=== PATIENT | male | born 1970 | race Caucasian/White ===

== ENCOUNTER 2018-02-27 11:48 | Emergency (ER) | payer MEDICAID, OTHER ==
[2018-02-27 13:13] LABS: ADD MAN DIFF? NO
[2018-02-27 13:17] LABS: BASOPHILS % 0.3 % (0.0-2.0); EOSINOPHILS # 0.1 10^3/ul (0.0-0.5); EOSINOPHILS % 0.6 % (0.0-7.0); HEMATOCRIT 44.5 % (42.0-52.0); HEMOGLOBIN 15.2 g/dl (14.0-18.0); LYMPHOCYTES # 3.7 10^3/ul (0.8-2.9); LYMPHOCYTES % 31.1 % (15.0-51.0); MEAN CORPUSCULAR HGB CONC 34.2 g/dl (32.0-37.0); MEAN CORPUSCULAR VOLUME 90.6 fl (82.0-101.0); MEAN PLATELET VOLUME 10.1 fl (7.4-10.4); MONOCYTE # 0.7 10^3/ul (0.3-0.9); MONOCYTES % 5.9 % (0.0-11.0); NEUTROPHIL # 7.3 10^3/ul (1.6-7.5); NEUTROPHILS % 61.7 % (39.0-77.0); PLATELET COUNT 275 10^3/UL (140-415); RED BLOOD COUNT 4.91 10^6/ul (4.70-6.10); RED CELL DISTRIBUTION WIDTH 12.5 % (11.5-14.5)
[2018-02-27 13:17] LABS: WHITE BLOOD COUNT 11.8 10^3/ul (4.8-10.8)
[2018-02-27 13:28] LABS: ADD UMIC NO; UR ASCORBIC ACID NEGATIVE (NEGATIVE); UR BILIRUBIN (Dip) NEGATIVE (NEGATIVE); UR BLOOD (Dip) NEGATIVE (NEGATIVE); UR CLARITY CLEAR (CLEAR); UR COLOR YELLOW (YELLOW); UR GLUCOSE (Dip) NEGATIVE (NEGATIVE); UR KETONES (Dip) NEGATIVE (NEGATIVE); UR LEUKOCYTE ESTERASE (Dip) NEGATIVE Leu/ul (NEGATIVE); UR NITRITE (Dip) NEGATIVE (NEGATIVE); UR SPECIFIC GRAVITY (Dip) 1.008 (1.003-1.030); UR TOTAL PROTEIN (Dip) NEGATIVE (NEGATIVE); UR UROBILINOGEN (Dip) NEGATIVE (NEGATIVE)
[2018-02-27 13:41] LABS: ALANINE AMINOTRANSFERASE 34 IU/L (13-69); ALBUMIN 4.6 g/dl (3.3-4.9); ALBUMIN/GLOBULIN RATIO 0.97; ALKALINE PHOSPHATASE 84 IU/L (42-121); ANION GAP 14 (5-13); ASPARTATE AMINO TRANSFERASE 41 IU/L (15-46); BILIRUBIN,INDIRECT 0.4 mg/dl (0-1.1); BILIRUBIN,TOTAL 0.4 mg/dl (0.2-1.3); BLOOD UREA NITROGEN 11 mg/dl (7-20); CALCIUM 9.2 mg/dl (8.4-10.2); CARBON DIOXIDE 22 mmol/L (21-31); CHLORIDE 100 mmol/L (97-110); CREATININE 0.88 mg/dl (0.61-1.24); Estimated GFR > 60 mL/min (>60); GLUCOSE 109 mg/dl (70-220); POTASSIUM 3.7 mmol/L (3.5-5.1); SODIUM 136 mmol/L (135-144); TOTAL PROTEIN 9.3 g/dl (6.1-8.1)
[2018-02-27 13:42] LABS: ACETAMINOPHEN < 10.0 ug/ml (10.0-30.0); SALICYLATE < 1.0 mg/dl (5.0-30.0)
[2018-02-27] MEDS ORDERED: DIPHENHYDRAMINE 50 MG INJ (13:49)
[2018-02-27] MEDS ORDERED: HALOPERIDOL 5 MG INJ (13:49)
[2018-02-27] MEDS ORDERED: LORAZEPAM 2 MG INJ (13:50)
[2018-02-27] MEDS: HALOPERIDOL 5 MG INJ IM (13:54)
[2018-02-27] MEDS: DIPHENHYDRAMINE 50 MG INJ IM (13:54)
[2018-02-27] MEDS: LORAZEPAM 2 MG INJ IM (13:54)
[2018-02-27 14:02] LABS: ETHANOL < 10.0 mg/dl
[2018-02-27 14:03] LABS: BARBITURATES Negative (NEGATIVE); BENZODIAZEPINES Negative (NEGATIVE); CANNABINOIDS Negative (NEGATIVE); COCAINE Negative (NEGATIVE)
[2018-02-27 14:14] LABS: OPIATES Negative (NEGATIVE)
[2018-02-27 14:16] LABS: AMPHETAMINE/METHAMPHETAMINE POSITIVE (NEGATIVE)
== END 2018-02-28 09:55 | disposition home or self-care (01) ==
LOC: E/R 02-28 09:55
DX: F29 Unspecified psychosis not due to a substance or known physiological condition (principal); E11.9 Type 2 diabetes mellitus without complications; Z21 Asymptomatic human immunodeficiency virus [HIV] infection status; Z79.82 Long term (current) use of aspirin; Z79.84 Long term (current) use of oral hypoglycemic drugs
CPT/HCPCS: 36415; 80053; 80307; 81003; 82962; 85025; 96372; 99284-25

== ENCOUNTER 2018-05-06 18:43 | Emergency (ER) | payer SELFPAY, MEDICAID ==
[2018-05-06] MEDS: CEFTRIAXONE 1 GM INJ IM (19:37)
[2018-05-06] MEDS: LIDOCAINE 1% (MPF) 5 ML VIAL INFIL (19:37)
== END 2018-05-06 20:20 | disposition home or self-care (01) ==
LOC: FTE 18:43
DX: H65.193 Other acute nonsuppurative otitis media, bilateral (principal); I10 Essential (primary) hypertension; E11.9 Type 2 diabetes mellitus without complications; F17.210 Nicotine dependence, cigarettes, uncomplicated; Z79.82 Long term (current) use of aspirin; Z85.038 Personal history of other malignant neoplasm of large intestine
CPT/HCPCS: 96372; 99284-25

== ENCOUNTER 2018-05-07 13:18 | Emergency (ER) | payer MEDICAID | END 2018-05-07 15:52 | disposition home or self-care (01) | LOC: FTE 13:18 | DX: F20.9 Schizophrenia, unspecified (principal); I10 Essential (primary) hypertension; E11.9 Type 2 diabetes mellitus without complications; F17.210 Nicotine dependence, cigarettes, uncomplicated; F22 Delusional disorders; Z85.038 Personal history of other malignant neoplasm of large intestine; Z79.82 Long term (current) use of aspirin; Z79.84 Long term (current) use of oral hypoglycemic drugs | CPT/HCPCS: 70450; 99284-25 ==

== ENCOUNTER 2018-05-11 15:55 | Emergency (ER) | payer MEDICAID ==
[2018-05-11 21:30] LABS: ADD MAN DIFF? NO
[2018-05-11 21:31] LABS: BASOPHILS % 0.3 % (0.0-2.0); EOSINOPHILS # 0.1 10^3/ul (0.0-0.5); EOSINOPHILS % 1.3 % (0.0-7.0); HEMATOCRIT 42.9 % (42.0-52.0); HEMOGLOBIN 14.4 g/dl (14.0-18.0); LYMPHOCYTES % 41.2 % (15.0-51.0); MEAN CORPUSCULAR HEMOGLOBIN 30.9 pg (29.0-33.0); MEAN CORPUSCULAR HGB CONC 33.6 g/dl (32.0-37.0); MEAN CORPUSCULAR VOLUME 92.1 fl (82.0-101.0); MONOCYTE # 0.5 10^3/ul (0.3-0.9); MONOCYTES % 5.1 % (0.0-11.0); NEUTROPHILS % 51.7 % (39.0-77.0); PLATELET COUNT 325 10^3/UL (140-415); RED BLOOD COUNT 4.66 10^6/ul (4.70-6.10); RED CELL DISTRIBUTION WIDTH 12.8 % (11.5-14.5)
[2018-05-11 21:31] LABS: WHITE BLOOD COUNT 9.6 10^3/ul (4.8-10.8)
[2018-05-11 21:47] LABS: ANION GAP 7 (5-13); BLOOD UREA NITROGEN 11 mg/dl (7-20); CALCIUM 9.1 mg/dl (8.4-10.2); CARBON DIOXIDE 26 mmol/L (21-31); CHLORIDE 106 mmol/L (97-110); CREATININE 0.73 mg/dl (0.61-1.24); Estimated GFR > 60 mL/min (>60); GLUCOSE 168 mg/dl (70-220); POTASSIUM 3.8 mmol/L (3.5-5.1); SODIUM 139 mmol/L (135-144)
[2018-05-11 21:51] LABS: INR 0.93; PARTIAL THROMBOPLASTIN TIME 33.9 Sec (23.0-35.0); PROTIME 12.6 Sec (11.9-14.9)
[2018-05-12] MEDS: AMOXICILLIN/CLAV 875 MG TAB PO (00:05)
== END 2018-05-12 00:34 | disposition home or self-care (01) ==
LOC: E/R 05-12 00:34
DX: H60.92 Unspecified otitis externa, left ear (principal); E11.9 Type 2 diabetes mellitus without complications; I10 Essential (primary) hypertension; Z79.82 Long term (current) use of aspirin; Z79.84 Long term (current) use of oral hypoglycemic drugs; Z85.038 Personal history of other malignant neoplasm of large intestine; Z87.891 Personal history of nicotine dependence
CPT/HCPCS: 36415; 70450; 80048; 85025; 85610; 85730; 99284-25

== ENCOUNTER 2018-05-14 19:24 | Emergency (ER) | payer MEDICAID ==
[2018-05-14] MEDS: KETOROLAC 15 MG INJ IM (21:58)
== END 2018-05-14 22:25 | disposition home or self-care (01) ==
LOC: FTE 19:24
DX: H93.91 Unspecified disorder of right ear (principal); E11.9 Type 2 diabetes mellitus without complications; I10 Essential (primary) hypertension; Z79.82 Long term (current) use of aspirin; Z79.84 Long term (current) use of oral hypoglycemic drugs; Z85.038 Personal history of other malignant neoplasm of large intestine
CPT/HCPCS: 96372; 99284-25

== ENCOUNTER 2018-05-21 17:05 | Emergency (ER) | payer MEDICAID ==
[2018-05-21 19:13] LABS: ADD MAN DIFF? NO
[2018-05-21 19:15] LABS: WHITE BLOOD COUNT 10.3 10^3/ul (4.8-10.8)
[2018-05-21 19:15] LABS: BASOPHILS % 0.3 % (0.0-2.0); EOSINOPHILS # 0.1 10^3/ul (0.0-0.5); EOSINOPHILS % 1.4 % (0.0-7.0); HEMATOCRIT 41.3 % (42.0-52.0); HEMOGLOBIN 13.9 g/dl (14.0-18.0); LYMPHOCYTES # 4.6 10^3/ul (0.8-2.9); MEAN CORPUSCULAR HEMOGLOBIN 30.8 pg (29.0-33.0); MEAN CORPUSCULAR HGB CONC 33.7 g/dl (32.0-37.0); MEAN CORPUSCULAR VOLUME 91.6 fl (82.0-101.0); MEAN PLATELET VOLUME 10.7 fl (7.4-10.4); MONOCYTE # 0.6 10^3/ul (0.3-0.9); MONOCYTES % 5.8 % (0.0-11.0); NEUTROPHIL # 4.9 10^3/ul (1.6-7.5); NEUTROPHILS % 47.2 % (39.0-77.0); PLATELET COUNT 277 10^3/UL (140-415); RED BLOOD COUNT 4.51 10^6/ul (4.70-6.10); RED CELL DISTRIBUTION WIDTH 12.8 % (11.5-14.5)
[2018-05-21 19:30] LABS: ADD UMIC NO; UR AMORPHOUS CRYSTAL MODERATE /HPF (NONE SEEN); UR ASCORBIC ACID NEGATIVE (NEGATIVE); UR BILIRUBIN (Dip) NEGATIVE (NEGATIVE); UR BLOOD (Dip) NEGATIVE (NEGATIVE); UR CLARITY SLIGHTLY CLOUDY (CLEAR); UR COLOR YELLOW (YELLOW); UR GLUCOSE (Dip) 1+ mg/dL (NEGATIVE); UR KETONES (Dip) NEGATIVE (NEGATIVE); UR LEUKOCYTE ESTERASE (Dip) NEGATIVE Leu/ul (NEGATIVE); UR NITRITE (Dip) NEGATIVE (NEGATIVE); UR RBC 0 /HPF (0-5); UR SPECIFIC GRAVITY (Dip) 1.018 (1.003-1.030); UR TOTAL PROTEIN (Dip) NEGATIVE (NEGATIVE); UR UROBILINOGEN (Dip) NEGATIVE (NEGATIVE); UR WBC 1 /HPF (0-5)
[2018-05-21 19:32] LABS: ALANINE AMINOTRANSFERASE 20 IU/L (13-69); ALBUMIN 4.3 g/dl (3.3-4.9); ALBUMIN/GLOBULIN RATIO 1.22; ALKALINE PHOSPHATASE 89 IU/L (42-121); ANION GAP 8 (5-13); ASPARTATE AMINO TRANSFERASE 36 IU/L (15-46); BLOOD UREA NITROGEN 14 mg/dl (7-20); CALCIUM 9.5 mg/dl (8.4-10.2); CARBON DIOXIDE 28 mmol/L (21-31); CHLORIDE 105 mmol/L (97-110); CREATININE 0.75 mg/dl (0.61-1.24); Estimated GFR > 60 mL/min (>60); GLUCOSE 124 mg/dl (70-220); POTASSIUM 3.7 mmol/L (3.5-5.1); SODIUM 141 mmol/L (135-144); TOTAL PROTEIN 7.8 g/dl (6.1-8.1)
[2018-05-21 19:39] LABS: ACETAMINOPHEN < 10.0 ug/ml (10.0-30.0); ETHANOL < 10.0 mg/dl (0-0); SALICYLATE < 1.0 mg/dl (5.0-30.0)
[2018-05-21 19:42] LABS: BARBITURATES Negative (NEGATIVE); BENZODIAZEPINES Negative (NEGATIVE); CANNABINOIDS Negative (NEGATIVE); COCAINE Negative (NEGATIVE); OPIATES Negative (NEGATIVE)
[2018-05-21 19:59] LABS: AMPHETAMINE/METHAMPHETAMINE POSITIVE (NEGATIVE)
[2018-05-21] MEDS: ARIPIPRAZOLE 5 MG TAB PO (21:53)
[2018-05-22] MEDS: ARIPIPRAZOLE 5 MG TAB PO (15:22)
== END 2018-05-22 16:30 ==
LOC: E/R 17:05
DX: R44.3 Hallucinations, unspecified (principal); I10 Essential (primary) hypertension; E11.9 Type 2 diabetes mellitus without complications; Z21 Asymptomatic human immunodeficiency virus [HIV] infection status; Z79.82 Long term (current) use of aspirin; Z85.038 Personal history of other malignant neoplasm of large intestine
CPT/HCPCS: 36415; 80053; 80307; 81001; 81003; 82962; 85025; 93005; 99285-25

== ENCOUNTER 2018-05-29 19:15 | Emergency (ER) | payer MEDICAID ==
[2018-05-29] MEDS: HYDROCODONE/APAP (10/325) TAB PO (23:35)
[2018-05-29] MEDS: CEFTRIAXONE 1 GM INJ IM (23:36)
== END 2018-05-30 00:44 | disposition home or self-care (01) ==
LOC: E/R 05-30 00:44
DX: R51 Headache (principal); I10 Essential (primary) hypertension; E11.9 Type 2 diabetes mellitus without complications; Z79.82 Long term (current) use of aspirin; Z79.84 Long term (current) use of oral hypoglycemic drugs; Z85.038 Personal history of other malignant neoplasm of large intestine
CPT/HCPCS: 96372; 99284-25

== ENCOUNTER 2018-06-03 13:19 | Emergency (ER) | payer MEDICAID | END 2018-06-03 16:48 | disposition home or self-care (01) | LOC: E/R 13:19 | DX: H93.93 Unspecified disorder of ear, bilateral (principal); I10 Essential (primary) hypertension; E11.9 Type 2 diabetes mellitus without complications; Z21 Asymptomatic human immunodeficiency virus [HIV] infection status; Z79.82 Long term (current) use of aspirin; Z79.84 Long term (current) use of oral hypoglycemic drugs; Z85.038 Personal history of other malignant neoplasm of large intestine | CPT/HCPCS: 99282; Z7502 ==

== ENCOUNTER 2018-06-22 21:29 | Emergency (ER) | payer MEDICAID | END 2018-06-23 01:00 | disposition home or self-care (01) | LOC: FTE 06-23 01:00 | DX: H60.391 Other infective otitis externa, right ear (principal); B20 Human immunodeficiency virus [HIV] disease; I10 Essential (primary) hypertension; E11.9 Type 2 diabetes mellitus without complications; Z79.84 Long term (current) use of oral hypoglycemic drugs; Z85.038 Personal history of other malignant neoplasm of large intestine | CPT/HCPCS: 99283 ==

== ENCOUNTER 2018-07-10 10:46 | Emergency (ER) | payer SELFPAY, MEDICAID ==
[2018-07-10] MEDS ORDERED: OLANZAPINE (ODT) 5 MG TAB PO (11:41)
[2018-07-10 12:31] LABS: AMPHETAMINE/METHAMPHETAMINE POSITIVE (NEGATIVE); BARBITURATES NEGATIVE (NEGATIVE); BENZODIAZEPINES NEGATIVE (NEGATIVE); CANNABINOIDS NEGATIVE (NEGATIVE); COCAINE NEGATIVE (NEGATIVE); OPIATES NEGATIVE (NEGATIVE)
[2018-07-10 12:36] LABS: ADD UMIC YES; UR ASCORBIC ACID NEGATIVE (NEGATIVE); UR BILIRUBIN (Dip) NEGATIVE (NEGATIVE); UR BLOOD (Dip) NEGATIVE (NEGATIVE); UR CLARITY SLIGHTLY CLOUDY (CLEAR); UR COLOR YELLOW (YELLOW); UR GLUCOSE (Dip) NEGATIVE (NEGATIVE); UR GRANULAR CAST FEW /HPF (NONE SEEN); UR HYALINE CAST FEW /HPF (NONE SEEN); UR KETONES (Dip) NEGATIVE (NEGATIVE); UR LEUKOCYTE ESTERASE (Dip) NEGATIVE Leu/ul (NEGATIVE); UR MUCUS MANY /HPF (NONE SEEN); UR NITRITE (Dip) NEGATIVE (NEGATIVE); UR RBC 1 /HPF (0-5); UR SPECIFIC GRAVITY (Dip) 1.017 (1.003-1.030); UR TOTAL PROTEIN (Dip) 1+ mg/dl (NEGATIVE); UR UROBILINOGEN (Dip) NEGATIVE (NEGATIVE); UR WBC 2 /HPF (0-5)
== END 2018-07-10 12:37 | disposition home or self-care (01) ==
LOC: E/R 10:46
DX: H92.01 Otalgia, right ear (principal); I10 Essential (primary) hypertension; E11.9 Type 2 diabetes mellitus without complications; Z79.84 Long term (current) use of oral hypoglycemic drugs; Z85.038 Personal history of other malignant neoplasm of large intestine
CPT/HCPCS: 80307; 81001; 99283

== ENCOUNTER 2018-08-10 09:39 | Emergency (ER) | payer MEDICAID ==
[2018-08-10] MEDS: KETOROLAC 30 MG INJ IM (10:32)
== END 2018-08-10 10:50 | disposition home or self-care (01) ==
LOC: FTE 09:39
DX: T16.1XXA Foreign body in right ear, initial encounter (principal); I10 Essential (primary) hypertension; E11.9 Type 2 diabetes mellitus without complications; X58.XXXA Exposure to other specified factors, initial encounter; Y92.9 Unspecified place or not applicable; Z85.038 Personal history of other malignant neoplasm of large intestine; Z21 Asymptomatic human immunodeficiency virus [HIV] infection status; Z87.891 Personal history of nicotine dependence; Z79.84 Long term (current) use of oral hypoglycemic drugs
CPT/HCPCS: 69200; 96372; 99284-25

== ENCOUNTER 2018-10-03 19:15 | Emergency (ER) | payer MEDICAID ==
[2018-10-03] MEDS ORDERED: KETOROLAC 30 MG INJ IM (21:02)
[2018-10-03] MEDS ORDERED: morphine 4 MG/ML VIAL IV (21:06)
[2018-10-03] MEDS: HYDROCODONE/APAP (5/325) TAB PO (21:08)
[2018-10-03] MEDS: SOD CHLORIDE 0.9% 1,000 ML IV (21:43)
[2018-10-03] MEDS: morphine 2 MG INJ IV (21:47)
[2018-10-03 22:02] LABS: ADD MAN DIFF? NO
[2018-10-03 22:06] LABS: BASOPHILS % 0.3 % (0.0-2.0); EOSINOPHILS # 0.1 10^3/ul (0.0-0.5); EOSINOPHILS % 1.3 % (0.0-7.0); LYMPHOCYTES # 4.1 10^3/ul (0.8-2.9); LYMPHOCYTES % 36.9 % (15.0-51.0); MEAN CORPUSCULAR HEMOGLOBIN 31.8 pg (29.0-33.0); MEAN CORPUSCULAR HGB CONC 34.2 g/dl (32.0-37.0); MEAN CORPUSCULAR VOLUME 92.9 fl (82.0-101.0); MEAN PLATELET VOLUME 9.9 fl (7.4-10.4); MONOCYTE # 0.6 10^3/ul (0.3-0.9); MONOCYTES % 5.5 % (0.0-11.0); NEUTROPHIL # 6.1 10^3/ul (1.6-7.5); NEUTROPHILS % 55.4 % (39.0-77.0); PLATELET COUNT 356 10^3/UL (140-415); RED BLOOD COUNT 4.09 10^6/ul (4.70-6.10); RED CELL DISTRIBUTION WIDTH 13.2 % (11.5-14.5)
[2018-10-03 22:25] LABS: INR 0.94; PROTIME 12.7 Sec (11.9-14.9)
[2018-10-03 22:26] LABS: PARTIAL THROMBOPLASTIN TIME 27.8 Sec (23.0-35.0)
== END 2018-10-04 00:27 | disposition home or self-care (01) ==
LOC: FTE 10-04 00:27
DX: S89.91XA Unspecified injury of right lower leg, initial encounter (principal); M79.89 Other specified soft tissue disorders; E11.9 Type 2 diabetes mellitus without complications; F17.210 Nicotine dependence, cigarettes, uncomplicated; V03.10XA Pedestrian on foot injured in collision with car, pick-up truck or van in traffic accident, initial encounter; Z79.84 Long term (current) use of oral hypoglycemic drugs; Z85.038 Personal history of other malignant neoplasm of large intestine
CPT/HCPCS: 73590; 73610-RT; 73630; 85025; 85610; 85730; 93971; 96361; 96374; 99285-25

== ENCOUNTER 2018-10-21 18:34 | Emergency (ER) | payer SELFPAY, MEDICAID ==
[2018-10-21] MEDS ORDERED: KETOROLAC 30 MG INJ IM (20:24)
[2018-10-21] MEDS: KETOROLAC 15 MG INJ IM ×2 (20:32→20:33)
== END 2018-10-21 20:57 | disposition home or self-care (01) ==
LOC: FTE 18:34
DX: H60.503 Unspecified acute noninfective otitis externa, bilateral (principal); E11.9 Type 2 diabetes mellitus without complications; I10 Essential (primary) hypertension; F17.210 Nicotine dependence, cigarettes, uncomplicated; Z79.84 Long term (current) use of oral hypoglycemic drugs; Z85.038 Personal history of other malignant neoplasm of large intestine
CPT/HCPCS: 96372; 99284-25

== ENCOUNTER 2018-10-29 17:49 | Emergency (ER) | payer SELFPAY, OTHER ==
[2018-10-29] MEDS: DOCUSATE 10 MG/ML PO SYG PO (18:29)
[2018-10-29] MEDS: HYDROGEN PEROXIDE 118 ML TOP (18:58)
[2018-10-29] MEDS: CARBAMIDE PEROXIDE 6.5% 15ML OTIC BOTH EARS (18:58)
== END 2018-10-29 19:32 | disposition home or self-care (01) ==
LOC: FTE 17:49
DX: H61.22 Impacted cerumen, left ear (principal)
CPT/HCPCS: 69209; 99283-25

== ENCOUNTER 2018-11-18 09:18 | Emergency (ER) | payer SELFPAY ==
[2018-11-18] MEDS: KETOROLAC 30 MG INJ IM (10:12)
== END 2018-11-18 10:27 | disposition home or self-care (01) ==
LOC: FTE 09:18
DX: H60.93 Unspecified otitis externa, bilateral (principal); H65.93 Unspecified nonsuppurative otitis media, bilateral; H72.93 Unspecified perforation of tympanic membrane, bilateral; H93.93 Unspecified disorder of ear, bilateral; I10 Essential (primary) hypertension; E11.9 Type 2 diabetes mellitus without complications; F17.210 Nicotine dependence, cigarettes, uncomplicated; Z21 Asymptomatic human immunodeficiency virus [HIV] infection status; Z85.038 Personal history of other malignant neoplasm of large intestine; Z79.84 Long term (current) use of oral hypoglycemic drugs
CPT/HCPCS: J1885